=== PATIENT | male | born 1980 | race Caucasian/White ===

== ENCOUNTER 2020-09-23 11:06 | Outpatient (CLI) | payer OTHER | END 2020-09-23 11:07 | disposition home or self-care (01) | LOC: DTY/OP 11:06 | PROVIDERS: ATTEND Surgery | DX: E66.01 Morbid (severe) obesity due to excess calories (principal) | CPT/HCPCS: 97802 ==

== ENCOUNTER 2021-01-05 07:50 | Outpatient (CLI) | payer OTHER ==
[2021-01-05] MEDS ORDERED: Regadenoson 0.4 MG/5 ML SYRINGE ONE (10:41)
== END 2021-01-05 07:51 | disposition home or self-care (01) ==
LOC: NM 07:50
PROVIDERS: ATTEND Internal Medicine Cardiovascular Disease
DX: Z01.818 Encounter for other preprocedural examination (principal); E66.01 Morbid (severe) obesity due to excess calories
CPT/HCPCS: 78452; 93017; A9500; J2785

== ENCOUNTER 2021-02-10 16:22 | Outpatient (CLI) | payer SELFPAY ==
[2021-02-10 17:01] LABS: #Eosinphils 0.3 10x3/uL (0.0-0.5); #Monocytes 0.7 10x3/uL (0.0-1.1); #Neutrophils 5.1 10x3/uL (1.5-8.4); %Basophils 0.5 % (0.0-2.0); %Eosinophils 4.3 % (0.0-6.0); %Lymphocytes 19.6 % (18.0-47.0); %Monocytes 8.8 % (0.0-10.0); %Neutrophils 66.4 % (40.0-75.0); Hemoglobin 19.2 g/dL (13.5-17.5); Mean Corpuscular HGB CONC 32.9 g/dL (32.0-36.0); Mean Corpuscular Hemoglobin 28.5 pg (27.0-33.0); Mean Corpuscular Volume 86.8 fl (81.2-95.1); Mean Platelet Volume 10.1 fl (7.4-10.4); Platelet Count 209 10x3/uL (150-450); RBC Distribution Width 16.1 % (11.5-14.5); Red Blood Cell (RBC) Count 6.73 10x6/uL (4.32-5.72); White Blood Cell (WBC) Count 7.7 10x3/uL (3.5-10.5)
[2021-02-10 17:35] LABS: ALT (SGPT) 36 U/L (8-55); AST (SGOT) 29 U/L (5-34); Albumin 3.4 g/dL (3.5-5.0); Alkaline Phosphatase 85 U/L (40-110); Anion Gap 14 mmol/L (10-20); BUN (Urea Nitrogen) 17 mg/dL (8.9-20.6); Bilirubin, Total 0.7 mg/dL (0.2-1.2); Calc. Creatinine Clearance 0 mL/min (70-130); Calcium 9.1 mg/dL (7.8-10.44); Carbon Dioxide 28 mmol/L (22-29); Chloride 98 mmol/L (98-107); Globulin 2.6 g/dL (2.4-3.5); Glucose 135 mg/dL (70-105); Potassium 5.2 mmol/L (3.5-5.1); Sodium 135 mmol/L (136-145)
[2021-02-10 20:48] LABS: Hemoglobin A1c 7.4 % (4.0-6.0)
== END 2021-02-10 16:23 | disposition home or self-care (01) ==
LOC: LABBT 16:22
PROVIDERS: ATTEND Surgery
DX: Z01.818 Encounter for other preprocedural examination (principal); E66.01 Morbid (severe) obesity due to excess calories
CPT/HCPCS: 71046; 80053; 83036; 85025

== ENCOUNTER 2021-02-10 16:30 | Inpatient (IN) | payer OTHER, SELFPAY ==
[2021-02-12 12:03] VITALS: BMI 54.2
[2021-02-15] MEDS ORDERED: Heparin 5,000 UNITS/ML VIAL ONE (08:18)
[2021-02-15] MEDS ORDERED: Scopolamine 1.5 mg/72 hour Patch ONE (09:12)
[2021-02-15] MEDS ORDERED: Lidocaine 2% Jelly 5 ML TUBE ONE (10:59)
[2021-02-15] MEDS ORDERED: Fentanyl 100 MCG/2 ML VIAL ONE ×3 (10:59→14:53)
[2021-02-15] MEDS ORDERED: EPINEPHrine 1 MG/ML AMP ONE (11:04)
[2021-02-15] MEDS ORDERED: Bupivacaine 0.25% HCL 30 ML VIAL ONE ×2 (11:04→11:06)
[2021-02-15] MEDS ORDERED: Glycopyrrolate 0.2 MG/ML 5 ML SYRINGE ONE (11:44)
[2021-02-15] MEDS ORDERED: Rocuronium Bromide 10 MG/ML (10ML VIAL) ONE (11:44)
[2021-02-15] MEDS ORDERED: Ondansetron PF 4 MG/2 ML Vial ONE (11:44)
[2021-02-15] MEDS ORDERED: PROPOFOL 200 MG/20 ML VIAL ONE (11:44)
[2021-02-15] MEDS ORDERED: Ketorolac Tromethamine 30 MG/ML VIAL ONE ×2 (11:44→19:28)
[2021-02-15] MEDS ORDERED: Lidocaine 1% PF 5 ML VIAL ONE (11:44)
[2021-02-15] MEDS ORDERED: Dextrose 50% Abboject 50 ML SYRINGE SLOW IVP PRN (13:21)
[2021-02-15] MEDS ORDERED: hydrALAZINE 20 MG/ML VIAL SLOW IVP PRN (13:21)
[2021-02-15] MEDS ORDERED: Hydrocodone-Acetamin 15 ML UDCUP PO PRN (13:21)
[2021-02-15] MEDS ORDERED: Dextrose 5% in Water 1,000 ML IV PRN (13:21)
[2021-02-15] MEDS ORDERED: Ondansetron PF 4 MG/2 ML Vial IVP PRN ×2 (13:21→13:59)
[2021-02-15] MEDS ORDERED: diphenhydrAMINE 50 MG/ML VIAL IVP PRN ×2 (13:21→13:59)
[2021-02-15] MEDS ORDERED: Promethazine HCl 25 MG/ML VIAL IM PRN ×3 (13:21→13:59)
[2021-02-15] MEDS ORDERED: 1/2 NS w/KCL 20 mEq 1,000 ML IV SCH (13:30)
[2021-02-15] MEDS ORDERED: SUGAMMADEX SODIUM 200 MG/2 ML VIAL ONE (13:36)
[2021-02-15] MEDS ORDERED: Ondansetron HCl/PF 4 MG/2 ML Vial IVP PRN (13:52)
[2021-02-15] MEDS ORDERED: Promethazine HCl 25 MG/ML VIAL IVPB PRN (13:52)
[2021-02-15] MEDS ORDERED: Zolpidem Tartrate 5 MG TAB PO PRN (13:59)
[2021-02-15] MEDS ORDERED: Naloxone HCl 0.4 mg/ml Vial IV PRN (13:59)
[2021-02-15] MEDS ORDERED: diphenhydrAMINE 50 MG/ML VIAL IM PRN (13:59)
[2021-02-15] MEDS ORDERED: fentaNYL Citrate/PF 2,000 MCG in Sodium Chloride 0.9% 60 ML IV PRN (13:59)
[2021-02-15] MEDS ORDERED: diphenhydrAMINE 25 MG CAP PO PRN (13:59)
[2021-02-15] MEDS ORDERED: Communication Order-Pharmacy FS SCH (14:00)
[2021-02-15] MEDS ORDERED: Promethazine HCl 25 MG/ML VIAL ONE (14:00)
[2021-02-15] MEDS ORDERED: PROPOFOL 20 ML ONE (14:12)
[2021-02-15] MEDS ORDERED: Labetalol HCl 100 MG/20 ML VIAL ONE (14:26)
[2021-02-15] MEDS ORDERED: hydrALAZINE 20 MG/ML VIAL ONE (15:16)
[2021-02-15] MEDS ORDERED: Lisinopril 10 MG TAB ONE (16:27)
[2021-02-15] MEDS ORDERED: CEFAZOLIN 2 GM in Premix Bag 1 BAG IVPB SCH (17:00)
[2021-02-15] MEDS ORDERED: Enalaprilat Dihydrate 1.25 MG/ML VIAL ONE (17:19)
[2021-02-15] MEDS ORDERED: niCARdipine 40MG In NaCl 40 MG/200 ML BAG IVPB SCH (18:00)
[2021-02-15 18:57] LABS: Actual Bicarbonate (HCO3a) 25.4 mEq/L (22-28); Base Excess (BEa) -0.3 mEq/L (-2.0 to +3.0); CO2 Tension 45.1 mmHg (35.0-45.0); Calcium, Ionized (arterial) 1.11 mmol/L (1.12-1.30); Carboxyhemoglobin (COHb) 4.2 gm% (0.0-3.0); Hemoglobin (Hb) 19.4 g/dL (14.0-18.0); O2 Tension (PaO2), arterial 68.4 mmHg (80.0-100.0); Potassium - ABG Lab 4.45 mmol/L (3.70-5.30); pH, Arterial 7.37 (7.35-7.45)
[2021-02-15 18:59] LABS: ALV-art Gradient 103.385 mmHg (0-20); Puncture Site LRA
[2021-02-15] MEDS ORDERED: niCARdipine 50 MG in Sodium Chloride 0.9% 250 ML 230 ML IV SCH (19:15)
[2021-02-15] MEDS: CEFAZOLIN 2 GM in Premix Bag 1 BAG IVPB SCH (19:32)
[2021-02-15] MEDS: Ketorolac Tromethamine 30 MG/ML VIAL IVP SCH (19:32)
[2021-02-15] MEDS: 1/2 NS w/KCL 20 mEq 1,000 ML IV SCH (19:39)
[2021-02-16 04:05] LABS: #Eosinphils 0.1 thou/uL (0.0-0.7); #Lymphocytes 0.9 thou/uL (1.20-3.40); #Monocytes 0.6 thou/uL (0.11-0.59); %Basophils 0.3 % (0.0-1.0); %Eosinophils 1.2 % (0.0-10.0); %Monocytes 5.9 % (0.0-10.0); %Neutrophils 83.6 % (42.0-75.0); Hemoglobin 16.7 g/dL (14.0-18.0); Mean Corpuscular Hemoglobin 30.3 pg (27.0-31.0); Mean Corpuscular Volume 91.7 fL (78.0-98.0); Mean Platelet Volume 8.3 fL (7.4-10.4); Platelet Count 195 thou/uL (130-400); Red Blood Cell (RBC) Count 5.51 mill/uL (4.70-6.10); White Blood Cell (WBC) Count 9.6 thou/uL (4.8-10.8)
[2021-02-16 04:26] LABS: Anion Gap 16 mmol/L (10-20); BUN (Urea Nitrogen) 9 mg/dL (8.9-20.6); Calc. Creatinine Clearance 294 mL/min (70-130); Calcium 8.1 mg/dL (7.8-10.44); Carbon Dioxide 24 mmol/L (22-29); Chloride 98 mmol/L (98-107); Glucose 157 mg/dL (70-105); Potassium 4.6 mmol/L (3.5-5.1); Sodium 133 mmol/L (136-145)
[2021-02-16] MEDS: Ketorolac Tromethamine 30 MG/ML VIAL IVP SCH ×4 (08:10→18:14)
[2021-02-16] MEDS ORDERED: CEFAZOLIN 2 GM in Premix Bag 1 BAG IVPB SCH (08:15)
[2021-02-16] MEDS: CEFAZOLIN 2 GM in Premix Bag 1 BAG IVPB SCH (08:47)
[2021-02-16] MEDS: 1/2 NS w/KCL 20 mEq 1,000 ML IV SCH ×2 (08:47→21:33)
[2021-02-16] MEDS: Enoxaparin Sodium 40 MG/0.4 ML SYRINGE SC SCH (08:56)
[2021-02-16] MEDS: Pantoprazole 40 MG VIAL IVP SCH (09:01)
[2021-02-16] MEDS ORDERED: Dextrose 50% Abboject 50 ML SYRINGE SLOW IVP PRN (10:47)
[2021-02-16] MEDS ORDERED: Dextrose 5% in Water 1,000 ML IV PRN (10:47)
[2021-02-16] MEDS: Mometasone 200 MCG/Formoterol 5 MCG 120 PUFF INHALER INH SCH (18:18)
[2021-02-16] MEDS ORDERED: Mometasone 200 MCG/Formoterol 5 MCG 120 PUFF INHALER INH SCH (18:30)
[2021-02-17] MEDS: Ketorolac Tromethamine 30 MG/ML VIAL IVP SCH ×2 (00:13→05:20)
[2021-02-17] MEDS: 1/2 NS w/KCL 20 mEq 1,000 ML IV SCH (05:21)
[2021-02-17] MEDS: Mometasone 200 MCG/Formoterol 5 MCG 120 PUFF INHALER INH SCH (07:36)
[2021-02-17] MEDS ORDERED: Amlodipine 10 MG TAB PO SCH ×2 (09:00)
[2021-02-17] MEDS ORDERED: Lisinopril 20 MG TAB PO SCH (09:00)
[2021-02-17] MEDS: Enoxaparin Sodium 40 MG/0.4 ML SYRINGE SC SCH (09:10)
[2021-02-17] MEDS: Pantoprazole 40 MG VIAL IVP SCH (09:11)
[2021-02-17 09:22] VITALS: BP 119/78; TEMP 98.2
== END 2021-02-17 11:57 | disposition home or self-care (01) | DRG 620 ==
LOC: SURG A 02-15 07:28 → EDSTATUS 02-15 16:30 → SURG A 02-15 17:13 → CCU 02-15 23:05 → SURG A 02-16 13:55
PROVIDERS: ADMIT Surgery; ATTEND Surgery
PROC: 0DB64Z3 Excision of Stomach, Percutaneous Endoscopic Approach, Vertical (ICD-10-PCS; principal; 2021-02-15)
PROC: 0DJ68ZZ Inspection of Stomach, Via Natural or Artificial Opening Endoscopic (ICD-10-PCS; 2021-02-15)
DX: E66.01 Morbid (severe) obesity due to excess calories (principal); I16.1 Hypertensive emergency; Z68.43 Body mass index [BMI] 50.0-59.9, adult; K66.0 Peritoneal adhesions (postprocedural) (postinfection); I10 Essential (primary) hypertension; E11.9 Type 2 diabetes mellitus without complications; J45.909 Unspecified asthma, uncomplicated; F17.210 Nicotine dependence, cigarettes, uncomplicated; I16.0 Hypertensive urgency; R09.02 Hypoxemia; Z85.528 Personal history of other malignant neoplasm of kidney; Z90.5 Acquired absence of kidney; Z79.4 Long term (current) use of insulin; Z79.899 Other long term (current) drug therapy; Z79.51 Long term (current) use of inhaled steroids; Z71.6 Tobacco abuse counseling
CPT/HCPCS: 36415; 36416; 36600; 71045; 80048; 82805; 85025; 88307; 94640; 94760; C9113; J0171; J0360; J0690; J1644; J1650; J1885; J2405; J2550; J2704; J3010; J3480; J3490; J7050; J7620; S0020